=== PATIENT | female | born 1990 | race Caucasian/White ===

== ENCOUNTER 2016-11-18 11:00 | Day surgery (SDC) | payer OTHER ==
[~2016-11-18] VITALS: Ht 165.1 cm; Wt 86.2 kg
[~2016-11-18 11:00] MED LIST: 0.9% Sodium Chloride 1,000 ML IV SCH; ALBU90AE IH; OMEP20TA86 PO; Sodium Chloride LOK Flush 10 mL Syringe IV PRN; fentaNYL-PF 50 mCg/mL 2 mL Inj IVPUSH PRN
[2016-11-18 11:13] VITALS: BP 127/88; PULSE 89; RESP 14; O2SAT 96
[2016-11-18 12:47] VITALS: BP 107/71; PULSE 70; RESP 12; O2SAT 96
--- NOTE | 2016-11-18 12:47 | PCM.ENDCOL ---
Colonoscopy Date of Service: Nov 18, 2016 Physician Geoff Romero MD Pre Procedure Diagnosis: diarrhea blood in the stools Post Procedure Dx & Findings: Mild hemorrhoids diverticuli Procedure Colonoscopy PROCEDURE IN DETAIL: Prep adequate Withdrawal time 11 minutes After unremarkable rectal examination the Olympus video colonoscope was inserted patient's anal canal and was advanced to cecum. Landmarks were identified including the ileocecal valve and appendiceal orifice. Scope of further e advanced to the terminal ileum which showed normal villous structures without any ulcer mass or erosion. Advanced 10 cm. Scope was withdrawn systematically. Visualized colonic mucosa showed healthy shiny mucosa with normal healthy-appearing vasculature. Random biopsies obtained from the cecum to the rectum. A few small diverticuli noted in the sigmoid colon In the rectum retroflexion was done which showed hemorrhoids. Anal canal was inspected carefully on the way out and hemorrhoids noted. Impression Normal TI Random biopsies Diverticuli Hemorrhoids Recommendation Repeat colonoscopy when patient turns 51 there is no family history of colon cancer polyp. Diverticular diet Await biopsy Follow-up Rosa Mortensen in the GI clinic. Presedation Assessment Risks and Benefits Informed consent was obtained from the patient after all risks and benefits including but not limited to drug reaction, infection, pain, bleeding, perforation, as well as alternatives were discussed. Patient monitoring Continuous pulse oximetry, cardiac monitoring, blood pressure monitoring, IV access, and oxygen at 2L per nasal cannula. Periprocedural Fentanyl: Fentanyl 100mcg Incrementally Midazolam: Midazolam 7mg Incrementally Complications There were no periprocedural complications identified. Post Procedure Plan Post Procedure Recommendations 1. Restrict activities today. 2. Resume normal activities in the morning. 3. Resume medications. 4. Patient informed of normal post procedure side effects as bloating, drowsiness, blood streaking in the stool. 5. average risk CRCS. If colon polyps come back as: -Hyperplastic- can repeat colonoscopy in 10 years -Tubular adenoma- repeat colonoscopy in 5 years -Tubulovillous/villous adenoma- repeat colonoscopy in 3 years -If any dysplasia- return to clinic as soon as possible 6. Please don't hesitate to call me with any questions. Geoff Romero MD Nov 18, 2016 12:46
[2016-11-18 12:57] VITALS: BP 105/64; PULSE 74; RESP 12; O2SAT 96
[2016-11-18 13:05] VITALS: BP 105/69; PULSE 89; RESP 14; O2SAT 98
--- NOTE | 2016-11-19 13:56 | PATH ---
SURGICAL PATHOLOGY Attending Physician:Geoff Romero M.D. CASE STATUS: Signed Out PATIENT NAME: HERVE SLOAN PID: [id number] : 1990 DATE COLLECTED:11/18/2016 19:28 SPECIMEN: Colon, Biopsy CLINICAL HISTORY: 1). RANDOM COLON BIOPSY FINAL DIAGNOSIS: 1.RANDOM COLON BIOPSIES: FRAGMENTS OF NORMAL-APPEARING COLON MUCOSA. Negative for significant architectural distortion. Negative for intestinal metaplasia. Negative for dysplasia and malignancy. ICD10 R19.7 GROSS DESCRIPTION: The specimen is received in one formalin filled container labeled with the patient's name, sublabeled "random colon" and consists of multiple portions of tissue which aggregate to 0.3 x 0.3 x 0.3 CM. The specimen is entirely submitted in one cassette. 11/18/2016 [facility] MICRO DESCRIPTION: See diagnosis. ICD-9 CODES: CPT CODES: 1: 76908 Electronically Signed Out Brien Wise MD [facility] [address], [place] [address] Technical component performed at [facility], [facility] [address], [address]
== END 2016-11-18 23:59 | disposition home or self-care (01) ==
LOC: END 11:00
PROVIDERS: ATTEND Internal Medicine
DX: K92.1 Melena (principal); R19.7 Diarrhea, unspecified; K57.30 Diverticulosis of large intestine without perforation or abscess without bleeding; K64.9 Unspecified hemorrhoids; M06.9 Rheumatoid arthritis, unspecified
CPT/HCPCS: 45380; 99153; G0500; J7030